=== PATIENT | male | born 1970 | race African-American/Black ===

== ENCOUNTER 2018-04-11 11:37 | Emergency (ER) | payer OTHER ==
[~2018-04-11] VITALS: Ht 182.9 cm; Wt 91.6 kg
[~2018-04-11 11:37] MED LIST: ACETAMINOPHEN-1 EAC1; BACTRIM; IBUPROFEN 800800 M1 PO; KEFLEX500 MG PO; NORCO 5-325 TA1 EACH PO; PERCOCET 5-3251 EACH PO; PREDNISONE 20 M20 MG PO; ZOLOFT25 MG PO
[2018-04-11 11:59] LABS: ABSOLUTE EOSINOPHILS 0.1 thou/uL (0.0-0.7); ABSOLUTE LYMPHOCYTES 1.8 thou/uL (0.8-5.3); ABSOLUTE MONOCYTES 0.6 thou/uL (0.0-1.2); BASOPHILS 0.4 %; EOSINOPHILS 2.1 %; HEMATOCRIT 45.3 % (42.0-52.0); HEMOGLOBIN 14.9 gm/dL (14.0-18.0); LYMPHOCYTES 27.9 %; MCH 29.2 pg (26.0-34.0); MCHC 32.9 g/dL (28.0-37.0); MCV 88.7 fL (80.0-100.0); MONOCYTES 9.6 %; MPV 8.8 fl. (7.2-11.1); NUCLEATED RBCS 0 /100WBC; PLATELET COUNT* 224 thou/uL (150-400); RBC 5.11 mil/uL (4.50-6.00); RDW-CV 14.3 % (10.5-14.5); WBC 6.6 thou/uL (4.0-11.0)
[2018-04-11 12:09] LABS: APTT 28.9 Seconds (25.0-31.3); PROTIME 10.2 Seconds (9.20-11.50)
[2018-04-11 12:12] LABS: ANION GAP 3 mmol/L (7-16); BUN 12 mg/dL (7-18); CALCIUM 8.9 mg/dL (8.5-10.1); CHLORIDE 106 mmol/L (98-107); CO2 30 mmol/L (21-32); CREATININE 1.1 mg/dL (0.6-1.3); GLUCOSE 123 mg/dL (70-99); POTASSIUM 3.7 mmol/L (3.5-5.1); SODIUM 139 mmol/L (136-145)
[2018-04-11 12:30] LABS: ALBUMIN 3.8 g/dL (3.4-5.0); ALKALINE PHOSPHATASE 86 U/L (46-116); LIPASE 209 U/L (73-393); NT-PRO BRAIN NAT PEPTIDE 16 pg/mL (<300); SGOT 23 U/L (15-37); SGPT 37 U/L (30-65); TOTAL BILIRUBIN 0.8 mg/dL (<0.1-1.0); TOTAL PROTEIN 7.6 g/dL (6.4-8.2); TROPONIN-I LEVEL <0.06 ng/mL (<0.06)
[2018-04-11 12:41] VITALS: BP 153/77
--- NOTE | 2018-04-13 11:32 | EKG ---
[place] [address] ELECTROCARDIOGRAM REPORT Name: EDWIN ALFORD JR [id number] Admission: 04/11/18 Attend Phys: Discharge: 04/11/18 Date of : 66 Report #: [id number] THIS REPORT FOR: //name// [facility] ED Test Date: 2018-04-11 Test Time: 11:51:11 Pat Name: EDWIN ALFORD Department: Room: Gender: M [employer] Installer: : 1970 Requested By: Rolf Penny Order Number: [id number] MD: Anant Jones Measurements Intervals [place] Rate: 58 P: 61 IA: 201 QRS: 76 QRSD: 96 T: 28 QT: 384 QTc: 378 Interpretive Statements Sinus rhythm Probable left atrial enlargement Left ventricular hypertrophy ST elev, probable normal early repol pattern No previous ECG available for comparison Electronically Signed On 04-13-2018 11:31:53 CDT by Anant Jones [email or web address] <ELECTRONICALLY SIGNED> By: Anant Jones MD, [facility] 04/13/18 1131 1151 1151 Anant Jones MD, FACC /EPI
== END 2018-04-11 12:42 | disposition home or self-care (01) ==
LOC: M.ERS 11:37
PROVIDERS: Family Medicine
DX: R42 Dizziness and giddiness (principal); F41.9 Anxiety disorder, unspecified; F17.210 Nicotine dependence, cigarettes, uncomplicated

== ENCOUNTER 2018-04-26 13:35 | Emergency (ER) | payer OTHER ==
[~2018-04-26] VITALS: Ht 182.9 cm; Wt 92.5 kg
[2018-04-26] MEDS ORDERED: NOHOMEMEDICATIONS (13:46)
[2018-04-26] MEDS ORDERED: PERCOCET 5-3251 EACH PO (14:31)
[2018-04-26] MEDS ORDERED: IBUPROFEN 800800 MG PO (14:31)
[2018-04-26 14:41] VITALS: BP 139/73
== END 2018-04-26 14:41 | disposition home or self-care (01) ==
LOC: M.ERS 13:35
DX: M25.512 Pain in left shoulder (principal); F17.210 Nicotine dependence, cigarettes, uncomplicated

== ENCOUNTER 2018-06-29 15:32 | Emergency (ER) | payer OTHER ==
[~2018-06-29] VITALS: Ht 182.9 cm; Wt 93.4 kg
[~2018-06-29 15:32] MED LIST changes: +IBUPROFEN 800800 MG PO; +NOHOMEMEDICATIONS
[2018-06-29] MEDS ORDERED: HTN MED (15:48)
[2018-06-29] MEDS ORDERED: NORCO 5-325 TA1 EAC1 PO (17:06)
[2018-06-29 17:36] VITALS: BP 158/77
== END 2018-06-29 17:37 | disposition home or self-care (01) ==
LOC: M.ERS 15:32
DX: S82.492A Other fracture of shaft of left fibula, initial encounter for closed fracture (principal); F41.9 Anxiety disorder, unspecified; F17.210 Nicotine dependence, cigarettes, uncomplicated; Z86.14 Personal history of Methicillin resistant Staphylococcus aureus infection; X50.1XXA Overexertion from prolonged static or awkward postures, initial encounter; Y93.89 Activity, other specified; Y92.89 Other specified places as the place of occurrence of the external cause; Y99.8 Other external cause status

== ENCOUNTER 2019-05-17 19:56 | Emergency (ER) | payer OTHER ==
[~2019-05-17] VITALS: Ht 180.3 cm; Wt 93.4 kg
[~2019-05-17 19:56] MED LIST changes: +HTN MED; +NORCO 5-325 TA1 EAC1 PO
[2019-05-17 20:43] LABS: ABSOLUTE BASOPHILS 0.1 thou/uL (0.0-0.2); ABSOLUTE EOSINOPHILS 0.2 thou/uL (0.0-0.7); ABSOLUTE LYMPHOCYTES 2.2 thou/uL (0.8-5.3); ABSOLUTE MONOCYTES 0.7 thou/uL (0.0-1.2); ABSOLUTE NEUTROPHILS 3.4 thou/uL (1.6-8.1); EOSINOPHILS 2.4 %; HEMATOCRIT 43.2 % (42.0-52.0); HEMOGLOBIN 14.4 gm/dL (14.0-18.0); MCH 29.5 pg (26.0-34.0); MCHC 33.3 g/dL (28.0-37.0); MCV 88.5 fL (80.0-100.0); MONOCYTES 10.4 %; MPV 8.8 fl. (7.2-11.1); NUCLEATED RBCS 0 /100WBC; PLATELET COUNT* 228 thou/uL (150-400); POLYS 52.2 %; RBC 4.88 mil/uL (4.50-6.00); RDW-CV 14.4 % (10.5-14.5); WBC 6.5 thou/uL (4.0-11.0)
[2019-05-17 20:52] LABS: ANION GAP 4 mmol/L (7-16); BUN 12 mg/dL (7-18); CALCIUM 8.7 mg/dL (8.5-10.1); CHLORIDE 103 mmol/L (98-107); CO2 32 mmol/L (21-32); CREATININE 1.4 mg/dL (0.6-1.3); GLUCOSE 93 mg/dL (70-99); POTASSIUM 4.2 mmol/L (3.5-5.1); PROTIME 10.7 Seconds (9.20-11.50); SODIUM 139 mmol/L (136-145)
[2019-05-17 21:02] LABS: ALBUMIN 3.7 g/dL (3.4-5.0); ALKALINE PHOSPHATASE 86 U/L (46-116); SGOT 23 U/L (15-37); SGPT 42 U/L (30-65); TOTAL BILIRUBIN 0.6 mg/dL (<0.1-1.0); TOTAL PROTEIN 7.2 g/dL (6.4-8.2); TROPONIN-I LEVEL <0.06 ng/mL (<0.06)
[2019-05-17 21:47] LABS: URINE BILIRUBIN NEGATIVE (Negative); URINE BLOOD NEGATIVE (Negative); URINE COLOR YELLOW; URINE GLUCOSE-RANDOM NEGATIVE (Negative); URINE KETONES NEGATIVE (Negative); URINE LEUKOCYTES-REFLEX NEGATIVE (Negative); URINE NITRITE-REFLEX NEGATIVE (Negative); URINE PROTEIN NEGATIVE (Negative); URINE UROBILINOGEN 0.2 E.U./dl (0.2-1.0)
[2019-05-17 21:49] LABS: URINE CLARITY CLEAR
[2019-05-17] MEDS ORDERED: LISINOPRIL-HCT1 EACH PO (22:08)
[2019-05-17 22:29] VITALS: BP 138/82
--- NOTE | 2019-05-18 11:10 | EKG ---
[place] [address] ELECTROCARDIOGRAM REPORT Name: EDWIN ALFORD JR Room: [facility]#: [id number] Admission: 05/17/19 Attend Phys: Discharge: 05/17/19 Date of : 66 Report #: [id number] THIS REPORT FOR: //name// [facility] ED Test Date: 2019-05-17 Test Time: 21:04:28 Pat Name: EDWIN ALFORD Department: Room: Gender: M [employer]: [place] : 1970 Requested By: Jyotsna Martin Order Number: [id number] MD: Anant Jones Measurements Intervals [place] Rate: 73 P: 56 IN: 192 QRS: 67 QRSD: 91 T: 8 QT: 369 QTc: 407 Interpretive Statements Sinus rhythm Probable left atrial enlargement Probable left ventricular hypertrophy ST elev, probable normal early repol pattern Compared to ECG 04/11/2018 11:51:11 No significant changes Electronically Signed On 05-18-2019 11:09:52 CDT by Anant Jones [email or web address] <ELECTRONICALLY SIGNED> By: Anant Jones MD, [facility] 05/18/19 1109 03 03 Anant Jones MD, [facility] /EPI
== END 2019-05-17 22:31 | disposition home or self-care (01) ==
LOC: M.ERS 19:56
PROVIDERS: Personal Emergency Response Attendant
DX: I10 Essential (primary) hypertension (principal); F17.210 Nicotine dependence, cigarettes, uncomplicated; F41.9 Anxiety disorder, unspecified

== ENCOUNTER 2019-08-24 09:19 | Emergency (ER) | payer OTHER ==
[~2019-08-24] VITALS: Ht 182.9 cm; Wt 93.4 kg
[~2019-08-24 09:19] MED LIST changes: +LISINOPRIL-HCT1 EACH PO
[2019-08-24] MEDS ORDERED: TRAMADOL 50 MG50 MG PO (10:09)
[2019-08-24] MEDS ORDERED: FLEXERIL PO (10:09)
[2019-08-24 10:18] VITALS: BP 155/62
== END 2019-08-24 10:18 | disposition home or self-care (01) ==
LOC: M.ERS 09:19
DX: S39.012A Strain of muscle, fascia and tendon of lower back, initial encounter (principal); F41.9 Anxiety disorder, unspecified; F17.210 Nicotine dependence, cigarettes, uncomplicated; Z86.14 Personal history of Methicillin resistant Staphylococcus aureus infection; Z98.890 Other specified postprocedural states; X50.0XXA Overexertion from strenuous movement or load, initial encounter; Y92.89 Other specified places as the place of occurrence of the external cause; Y93.89 Activity, other specified; Y99.8 Other external cause status

== ENCOUNTER 2020-05-19 21:06 | Emergency (ER) | payer OTHER ==
[~2020-05-19] VITALS: Ht 182.9 cm; Wt 95.3 kg
[~2020-05-19 21:06] MED LIST changes: +FLEXERIL PO; +TRAMADOL 50 MG50 MG PO
[2020-05-19] MEDS ORDERED: HYDROCODON-ACE1 EAC8 PO ×2 (21:50)
[2020-05-19] MEDS ORDERED: TRIAMCINOLONE A15 G1 TOP (21:50)
[2020-05-19 22:06] VITALS: BP 142/58
== END 2020-05-19 22:08 | disposition home or self-care (01) ==
LOC: M.ERS 21:06
DX: T24.112A Burn of first degree of left thigh, initial encounter (principal); F41.9 Anxiety disorder, unspecified; F17.210 Nicotine dependence, cigarettes, uncomplicated; Y65.8 Other specified misadventures during surgical and medical care; Y92.89 Other specified places as the place of occurrence of the external cause; Y93.89 Activity, other specified; Y99.8 Other external cause status